=== PATIENT | male | born 1990 | race Caucasian/White ===

== ENCOUNTER 2017-05-06 16:47 | Emergency (ER) | payer MEDICAID, OTHER ==
[~2017-05-06] VITALS: Ht 170.2 cm; Wt 115.0 kg
[2017-05-06 16:50] VITALS: Ht 170.2 cm; Wt 115.0 kg
--- NOTE | 2017-05-06 17:04 | ERD ---
ER Documentation Chief Complaint Date/Time DATE: 05/06/17 TIME: 16:53 Chief Complaint Complains of dental pain HPI This pleasant 26-year-old male patient presents to emergency department today for left upper molar pain. Patient reports pain started intermittently 4 weeks ago, states his feeling came out of his tooth 3 days ago since then he has had a throbbing pain on the scale of 9/10. Patient denies fever, headache, or facial pain or pressure. Patient reports that he is able to chew food on the right side of his mouth but occasionally will forget and shoe on the left side that causes extreme discomfort playas difficulty getting food out of hole in his tooth. Patient reports that he has appointment for a dentist in 2 months. Denies antibiotic use in the last 3 months. ROS All systems reviewed and are negative except as per history of present illness. Allergies Allergies: Coded Allergies: No Known Allergy (Unverified , 05/06/17) Physical Exam Vitals Vital Signs Date Time Temp Pulse Resp B/P Pulse Ox O2 Delivery O2 Flow Rate FiO2 05/06/17 16:50 97.8 66 20 164/105 99 Vitals stable, triage notes reviewed Physical Exam Const: No acute distress, obvious discomfort, afebrile and sweating and exam room Head: Atraumatic Eyes: Normal Conjunctiva, PERRLA, EOM ENT: Left upper last molar presents as a hole in his gingiva. Erythema, and edema noted, patient is able to open and close jaw without difficulty, no subcutaneous emphysema, no maxillary or frontal sinus tenderness. Neck: No lymphadenopathy Resp: Chest rise and fall symmetrically, no respiratory distress Cardio: Abd: Skin: Back: Ext: Neur: Awake and alert Psych: Normal Mood and Affect Results 24 hrs This pleasant 26-year-old male patient presents to emergency department for evaluation and treatment of dental pain. Pain started 4 weeks ago but has increased over the last 3 days, patient reports feeling has fallen out physical exam shows open hole in gingiva, possible post noted. Air edema and erythema with tenderness on evaluation. Sinusitis,Sialadenitis, osteomyelitis, or salivary gland tumor is unlikely. Patient has visible gingiva consistent with dental caries. Patient will be treated with Augmentin 875 mg 1 tab p.o. twice daily 10 days, [place] 1 tab every 6 hours as needed severe pain defined as greater than 6/10 on pain scale, Motrin 600 mg 1 tab p.o. twice daily every 6 hours as needed pain less than 5/10 on pain scale. Return to emergency department for facial swelling, neck swelling, fever, or inability to open jaw, keep appointment with dentist in 2 months. Follow-up with primary care physician for medication refills if indicated. I feel the patient is stable for discharge at this time. I have discussed results, examination findings, the treatment plan with the patient and family present prior to discharge. Indications for emergent reevaluation, side effects of medication were also discussed. All questions were answered. Patient verbalizes understanding and agrees with plan of care. Departure Diagnosis: Primary Impression: Pain, dental Condition: Good Patient Instructions: Dental Abscess Additional Instructions: Thank you for for coming to [facility] for your care today. Please ask your nurse or provider if you have questions about your care today and do not leave until all your questions have been answered. Please use any medications given as directed and follow-up with your doctor (or the doctor you were referred to) in the next 2-3 days. If you do not have a primary care doctor you may follow up at the [facility] [place] (listed below). You may also use motrin and tylenol as needed for fever and/or pain unless instructed otherwise by your provider or nurse. Indications for more urgent follow-up have been discussed, but you may return to the Emergency Department at ANY time for any worrisome or worsening symptoms. If you have abdominal pain, please know that no test or exam you received is perfect and you should follow up within 8 hours for continued pain. If you had any imaging studies today, such as an X-Ray or CT Scan, these studies will be reviewed later by a radiologist. You will be called if there are important findings that were not identified today, so make sure the contact information you provided at registration is correct. If you received any narcotic pain control medicine today, such as Vicodin, Morphine or Dilaudid, your coordination and judgment may be affected for a number of hours. Please do not drive or operate heavy machinery, and you may want someone to assist you at home. If you were given a prescription for narcotic medication, be aware that it is very addictive- use sparingly and only if necessary. JARETT TOLBERT May 06, 2017 17:04
[2017-05-06] MEDS ORDERED: AMOX1TAB10 PO (17:05)
[2017-05-06] MEDS ORDERED: HYDR-906 PO (17:06)
[2017-05-06] MEDS ORDERED: IBUP-1542 PO (17:06)
== END 2017-05-07 17:06 | disposition home or self-care (01) ==
LOC: E/R 16:47
DX: K08.89 Other specified disorders of teeth and supporting structures (principal)
CPT/HCPCS: 99284